=== PATIENT | male | born 1945 | race Caucasian/White ===

== ENCOUNTER 2017-06-22 08:47 | Day surgery (SDC) | payer OTHER ==
[2017-06-22] VITALS (12 sets, daily range): BP systolic 114–158; BP diastolic 61–78; PULSE 57–67; RESP 12–18; O2SAT 93–100
[~2017-06-22] VITALS: Ht 172.7 cm; Wt 83.2 kg
[~2017-06-22 08:47] MED LIST: CREST10T PO; CeFAZolin 2 Gm/50 mL D5W IV Premix IV ONE; IRBE150T28 PO; METF500T4 PO; MULT-1018 PO; TOP100 PO
[2017-06-22] MEDS ORDERED: Ondansetron 2 mg/mL 2 mL Inj ONE (08:48)
[2017-06-22] MEDS ORDERED: Propofol 10,000 mCg/mL 20 mL Inj ONE (08:48)
[2017-06-22] MEDS ORDERED: fentaNYL-PF 50 mCg/mL 2 mL Inj ONE (08:48)
[2017-06-22] MEDS: Lactated Ringer's 1,000 ML IV SCH ×2 (08:56→10:08)
--- NOTE | 2017-06-22 09:43 | PCM.HPANE ---
Patient Data Surgeon Admitting Provider: Attending Provider:Olive Alfred MD Primary Care Physician:Arsenio Whitman MD Other Provider:[facility] Anest[facility] Reason for Visit Bladder Stone Ht/WT & BMI Height (Feet): 5 Height (Inches): 8.00 Weight (Kilograms): 83.2 Body Mass Index 27.00 Allergies Coded Allergies: No Known Allergies (Verified , 06/15/17) Past Anesthesia History Anesthesia History: Denies:: Abnormal Airway, Anesthesia Reactions, Difficult Intubation, Fam Anesthesia Reaction Diabetes History Hx Diabetes?: Yes Type of Diabetes: Type II Glycemic Control: Oral Medication Current Bedside Blood Glucose: 133 MRSA MRSA: No Medications Hypertension Medication: Yes Home Meds Incl Beta Nicholas: Yes (metoprolol 100mg) Date Beta Nicholas Taken: Jun 22, 2017 Time Beta Nicholas Taken: 729 Reported Medications Multivitamin (Multi Vitamin Daily)1 Each Tablet1 Each PO DAILY 30 Days Ref 0 06/15/17 Metoprolol Succinate ER (Toprol XL)100 Mg [id number] Mg PO DAILY Ref 0 06/15/17 Metformin 500 Mg [id number] Mg PO TID Ref 0 06/15/17 Irbesartan 150 Mg [id number] Mg PO BID 06/15/17 Rosuvastatin Calcium (Crestor)10 Mg [id number] Mg PO DAILY 30 Days Ref 0 06/15/17 History History of ENT Problems?: No HEENT History: Denies:: Abnormal Airway Cataracts Difficult Intubation Dysphagia Glaucoma Hearing Problem Sinus Problem TMJ Denture Type: None Teeth Condition: Within Normal Limits Hx of Heart Problems?: Yes Cardiovascular History: Positive for:: Cardiac Surgery (angioplasty with stent 2005) Heart Murmur (since childhood) Hypertension Denies:: Abdominal Aortic Aneurism Hx of Respiratory Problem?: No Respiratory History: Denies:: Asthma COPD Dyspnea Emphysema Oxygen Administration Pneumonia Tuberculosis Use of C-PAP Machine Use of Inhalers / NEBS Hx Neurologic Problems?: No Neurological History: Denies:: CVA Dizziness Headaches Multiple Sclerosis Parkinson's Disease Seizures Hx of GI Problems?: No Other GI Pertinent History: hx of rectal ca- colostomy- converted to ileostomy Hx of Problems?: Yes Other Pertinent History: hx of penile prosthesis Male Hx: Denies:: Prostate Problems Scrotal Mass Testicular Surgery Skin History: Denies:: History Skin Disorders? Pressure Ulcers Hx Musculoskeletal Problems?: No Musculoskeletal History: Positive for:: Osteoarthritis Denies:: Back Injury Degenerative Joint Fibromyalgia Joint Replacement Musculoskeletal Trauma Myasthenia Gravis Systemic Lupus Hx of Psycho/Social Problems?: No Psycho Social History: Denies:: Anxiety Hx Depression Hx Surgeries?: Yes (colectomy-ileostomy, penile prosthesis) Hx Any Other Health Problems?: Yes Other History: Positive for:: Cancer (rectal) Hospitalization Denies:: Thyroid Disease History Blood Transfusions: Positive for:: Blood Transfusions Denies:: Blood Transfuse Reaction Hx Diabetes: YesBedside Blood Glucose: 133 Hx Alcohol Use: NoHx Substance Use: NoHave You Smoked inLast 12 mo: No Stop/Bang Treated for Sleep Apnea?: No Do You Have a CPAP Machine?: No S-Snoring: Do You Snore Loudly: No T-Tired: feel tired, fatigued: No O-Obsered: Observed not breath: No P-Blood Pressure: treated: Yes B- Body Mass Index > 35 kg/m2: No A- Age over 50: Yes N- Neck Large Circumference: No G- Gender Male: Yes NAOMI Total Score: 3 NAOMI Risk Assessment: High Risk, =/>3 Yes Risk Assessment Category Category 1A: Patient has history of documented sleep apnea, and HAS NOT received any narcotic, sedative or anesthesia administration during this stay. Category 1B: Patient has history of documented sleep apnea, and HAS received any narcotic , sedative or anesthesia administration during this stay Category 2: Patient has SUSPECTED Obstructive Sleep Apnea, and HAS received any narcotic , sedative or anesthesia administration during this stay. Category 3: Patient has SUSPECTED Obstructive Sleep Apnea and HAS NOT received narcotic, sedative or anesthesia administration during this stay. Category 4: Outpatient in Procedural Areas with known sleep apnea or who screen positive for High Risk via the STOP/BANG questionnaire. Exam Exam Vital Signs Vital Signs Date Time Temp Pulse Resp B/P Pulse Ox O2 Delivery O2 Flow Rate FiO2 06/22/17 09:16 36.6 67 16 158/70 99 Room Air General Appearance: Alert, Oriented X3, Cooperative, No Acute Distress HEENT/AIRWAY: MP 2 Lungs: Clear to Auscultation Heart: Exam Unremarkable, Regular Rate/Rhythm, Normal S1, Normal S2 Meds/Labs/Diagnostics Admission Meds Current Medications Lactated Ringer's (Lr) 1,000 ml @ 120 mls/hr Q8H20M IV Last administered on 8/ 9/17at 08:56; Start 06/22/17 at 05:00; Stop 06/22/17 at 13:19 Bedside Blood Glucose: 133 Plan Impression Patient chart reviewed, patient interviewed and anesthestic plan with risks, benefits, and alternatives discussed, and informed consent obtained. NPO per Anesth. Guidelines: Yes ASA Physical Status: ASA2 Mod Systemic Disease Anesthetic Plan: GA Bene/Risks/Altern/Consents: Yes HP Complete Prior to Induction: Yes Jarocho Pierson MD Jun 22, 2017 09:43
[2017-06-22] MEDS ORDERED: Phenylephrine 10,000 mCg/mL Inj IVPUSH PRN (10:25)
[2017-06-22] MEDS ORDERED: Lactated Ringer's 1,000 ML IV SCH (10:25)
[2017-06-22] MEDS ORDERED: Ondansetron 2 mg/mL 2 mL Inj IVPUSH PRN (10:25)
[2017-06-22] MEDS ORDERED: fentaNYL-PF 50 mCg/mL 2 mL Inj IVPUSH PRN (10:25)
[2017-06-22] MEDS ORDERED: Dexamethasone 4 mg/mL Inj IVPUSH PRN (10:25)
[2017-06-22] MEDS ORDERED: MetoCLOpramide 5 mg/mL 2 mL Inj IVPUSH PRN (10:25)
[2017-06-22] MEDS ORDERED: EPHEDrine Sulfate 50 mg/mL Inj IVPUSH PRN (10:25)
[2017-06-22] MEDS ORDERED: HYDROmorphone 1 mg/mL Inj IVPUSH PRN (10:25)
[2017-06-22] MEDS ORDERED: Lactated Ringer's 500 ML IV PRN (10:25)
[2017-06-22] MEDS ORDERED: HYDROcodone-APAP 5-325 mg Tablet PO PRN (10:55)
--- NOTE | 2017-06-22 11:02 | PCM.ANEP1 ---
Post Anesthesia PACU Phase 1 Assessment Vital Signs Vital Signs Date Time Temp Pulse Resp B/P Pulse Ox O2 Delivery O2 Flow Rate FiO2 06/22/17 09:16 36.6 67 16 158/70 99 Room Air Anesthetic Administered: GA Level of Alertness: Sleepy, easy to arouse CERRATO's with Equal Strength: Yes Pain: No Nausea or Vomiting: No CV Function & Hydration Stable: No Airway Device: Oxygen Delivery: Room Air Lungs: Clear to Auscultation Dermatome Level: Full Sensation PACU Phase 2 Assessment Complications: No Follow up Care: No Patient Instructions Provided: N/A Jarocho Pierson MD Jun 22, 2017 11:02
--- NOTE | 2017-06-22 13:02 | OP ---
[address] [id number] OPERATIVE REPORT PATIENT: MICK FELIX : 1945 MR#: [id number] ADMIT: 06/22/2017 JOB ID: [id number] DATE OF SURGERY: 06/22/2017 PREOPERATIVE DIAGNOSIS(ES): 1. Urethral strictures. 2. Bladder stone. POSTOPERATIVE DIAGNOSIS(ES): 1. Urethral strictures. 2. Bladder stone. PROCEDURE PERFORMED: 1. Cystoscopy. 2. Urethral dilation. 3. Cystolitholapaxy (bladder stone 2.5-3 cm). SURGEON: Olive Alfred MD COLLECTIONS PROFESSIONAL: None. FINDINGS: 1. Multiple bulbar urethral strictures. 2. Large bladder stone. ANESTHESIA: General. ESTIMATED BLOOD LOSS: Less than 5 mL. DRAINS: An 18[place] coude catheter to the bladder. SPECIMENS: None. COMPLICATIONS: None. CONDITION: Stable. INDICATIONS FOR PROCEDURE: The patient is a 71-year-old man with a history of penile prosthesis, bladder stone, and urethral strictures. His penile prosthesis is nonfunctional. He had been counseled about the potential explantation of the device, though presently he wished to move forward only with urethral dilation and cystolitholapaxy. DESCRIPTION OF PROCEDURE: After informed consent was obtained, the patient was taken to the operating room. A time-out was performed, identifying correct patient, surgical site, and procedure. General anesthesia was smoothly induced. He was given intravenous antibiotics just prior to the start of the procedure. He was placed in the lithotomy position and all pressure points were identified and appropriately padded. His genitals were then prepped and draped in the usual sterile fashion. A 22[place] rigid cystoscope was applied to patient's urethra and advanced. Upon entering the bulbar urethra there was seen approximately 3-4 rings of stricture. A Sensor tip wire was guided under direct vision into the patient's bladder. The cystoscope was then backloaded. S dilators up to 20-[place], which was the maximum caliber, were used to dilate the urethral strictures. The dilators were then removed and the cystoscope was then replaced into the patient's bladder. The bladder was heavily trabeculated. There were cellules present. Both ureteral orifices were in orthotopic position. The cystoscope was then exchanged for a continuous-flow cystoscope and a 1000 micron laser fiber wire was used to break the stone into small fragments. The stone was quite large and hard. It fragmented well. All the stone fragments and debris had been removed with an Ellik evacuator as well as through the cystoscope. At the end of the procedure only a scant amount of edy debris was remaining in the patient's bladder, which could not be removed any further. The cystoscope was then removed and an 18[place] coude catheter was placed into the patient's bladder and instilled with 10 mL of sterile water into the balloon. He was reversed from general anesthesia and taken to the PACU in good and stable condition. LAUREN
== END 2017-06-22 23:59 | disposition home or self-care (01) ==
LOC: SAS 08:47
PROVIDERS: ATTEND Urology
DX: N21.0 Calculus in bladder (principal); N35.8 Other urethral stricture; I12.9 Hypertensive chronic kidney disease with stage 1 through stage 4 chronic kidney disease, or unspecified chronic kidney disease; I25.10 Atherosclerotic heart disease of native coronary artery without angina pectoris; E11.22 Type 2 diabetes mellitus with diabetic chronic kidney disease; N18.3 Chronic kidney disease, stage 3 (moderate); R06.00 Dyspnea, unspecified; M19.90 Unspecified osteoarthritis, unspecified site; I25.2 Old myocardial infarction; Z87.891 Personal history of nicotine dependence; Z85.048 Personal history of other malignant neoplasm of rectum, rectosigmoid junction, and anus; Z79.84 Long term (current) use of oral hypoglycemic drugs; Z95.5 Presence of coronary angioplasty implant and graft; Z93.2 Ileostomy status
CPT/HCPCS: 52318; J0690; J2405; J2704; J3010; J7120